=== PATIENT | male | born 1975 | race Caucasian/White ===

== ENCOUNTER 2021-01-26 08:27 | Day surgery (SDC) | payer OTHER ==
[2021-01-23 16:10] LABS: BASOPHILS % (AUTO) 0.5 % (0.0-5.0); EOSINOPHILS % (AUTO) 6.1 % (0.0-8.0); HEMATOCRIT 43.6 % (42-54); LYMPHOCYTES % (AUTO) 28.8 % (21.0-51.0); MEAN CORPUSCULAR HEMOGLOBIN 30.1 pg (27.0-33.0); MEAN CORPUSCULAR HGB CONC 35.6 g/dL (32.0-36.0); MEAN CORPUSCULAR VOLUME 84.7 fL (79-99); MONOCYTES % (AUTO) 9.1 % (3.0-13.0); NEUTROPHILS % (AUTO) 55.3 % (40.0-77.0); PLATELET COUNT (AUTO) 179 K/uL (130-400); RED BLOOD CELL COUNT(AUTO) 5.15 MIL/uL (4.50-6.20); WHITE BLOOD COUNT (AUTO) 8.6 K/uL (4.8-10.8)
[2021-01-23 16:21] LABS: CREATININE 1.1 mg/dL (0.5-1.5); POTASSIUM 4.1 mmol/L (3.5-5.1)
[2021-01-25 14:01] VITALS: BP 115/70
[2021-01-26] VITALS (18 sets, daily range): BP systolic 105–150; BP diastolic 70–89
[~2021-01-26] VITALS: Ht 195.6 cm; Wt 118.5 kg
[2021-01-26] MEDS: CEFAZOLIN SODIUM 1 GM VIAL IVP SCH ×2 (06:00→11:00)
[~2021-01-26 08:27] MED LIST: ALBU8.5H8 IH; ALLO100T PO; SODIUM CHLORIDE 0.9% 1000ML 1,000 ML IV SCH
[2021-01-26] MEDS ORDERED: ROPIVACAINE 0.5% 5MG/ML 30ML IJ ONE ×2 (09:26→09:32)
[2021-01-26] MEDS ORDERED: SUCCINYLCHOLINE CHLORIDE 20 MG/ML 10 ML VIAL ONE (09:26)
[2021-01-26] MEDS ORDERED: LIDOCAINE PF 2% 5ML ABBOJECT ONE (09:26)
[2021-01-26] MEDS ORDERED: PROPOFOL 10 MG/ML 20ML VIAL IV ONE ×2 (09:26→12:25)
[2021-01-26] MEDS ORDERED: MIDAZOLAM HCL 1 MG/ML 2ML VIAL ONE (09:27)
[2021-01-26] MEDS ORDERED: ROCURONIUM 10MG/1ML SYR 10 MG/ML ML ONE ×2 (09:27→11:23)
[2021-01-26] MEDS ORDERED: FENTANYL CITRATE PF 50 MCG/1 ML 2ML VIAL ONE (09:27)
[2021-01-26] MEDS ORDERED: LACTATED RINGERS 1000ML 1,000 ML IV ONE (09:29)
[2021-01-26] MEDS ORDERED: CEFAZOLIN SODIUM 1 GM VIAL ONE (09:32)
[2021-01-26] MEDS ORDERED: DEXAMETHASONE SOD PHOSPHATE 10MG/ML 1ML VIAL ONE (10:55)
[2021-01-26] MEDS ORDERED: TRANEXAMIC ACID 1000MG/10ML ONE (11:08)
[2021-01-26] MEDS ORDERED: ALBUTEROL INHALER 90MCG/INH IH ONE (11:26)
[2021-01-26] MEDS ORDERED: GLYCOPYRROLATE 1 MG/5 ML SYRINGE ONE (12:35)
[2021-01-26] MEDS ORDERED: NEOSTIGMINE 5MG/5ML SYR IV ONE (12:35)
[2021-01-26] MEDS ORDERED: ONDANSETRON HCL 4 MG/2 ML VIAL ONE (12:43)
[2021-01-26] MEDS ORDERED: MEPERIDINE-PF 25 MG/ML SYG ONE ×2 (13:33→13:45)
== END 2021-01-26 15:00 ==
LOC: DAH 08:27
PROVIDERS: ATTEND Orthopaedic Surgery
DX: S83.512A Sprain of anterior cruciate ligament of left knee, initial encounter (principal); M22.42 Chondromalacia patellae, left knee; J45.909 Unspecified asthma, uncomplicated; K21.9 Gastro-esophageal reflux disease without esophagitis; X58.XXXA Exposure to other specified factors, initial encounter; Y93.89 Activity, other specified; Y92.89 Other specified places as the place of occurrence of the external cause; Y99.8 Other external cause status; Z20.828 Contact with and (suspected) exposure to other viral communicable diseases
CPT/HCPCS: 27427; 29888; 36415; 64447; 76942; 80048; 85025; 87641; A4215; A4221; A4222; A4223; A4649 ×5; A4663; A4930; A5120; A6223; C1713 ×2; C1762 ×2; C9803; J0330; J0690 ×2; J1100; J2001; J2175 ×2; J2250; J2405; J2704 ×2; J2710; J2795 ×2; J3010; J3490 ×2; J7120 ×2; U0003